=== PATIENT | female | born 1950 | race Caucasian/White ===

== ENCOUNTER 2018-06-06 14:23 | Outpatient (CLI) | payer MEDICARE, OTHER ==
--- NOTE | 2018-06-09 13:55 | Mammography Report ---
Reason: SCREENING MAMMO Procedure Date: 06/06/2018 Accession Number: [id number] / [id number] Procedure: MGN - Screening Mammo Dig Bilat CPT Code: FULL RESULT: EXAM: Screening Mammo Dig Bilat DATE: 06/06/2018 2:52 PM CLINICAL HISTORY: New baseline TECHNIQUE: Bilateral CC and MLO views were obtained. COMPARISON: None FINDINGS: The breast tissue is heterogeneously dense. No suspicious masses, clustered microcalcifications, or regions of architectural distortion are identified. IMPRESSION: Negative. RECOMMENDATION: Routine annual screening unless otherwise clinically indicated. BIRADS CATEGORY 1: Negative. STANDARD QUALIFYING STATEMENTS: 1. This examination was reviewed with the aid of Computer-Aided Detection (CAD). 2. A negative or benign imaging report should not delay biopsy if clinically suspicious findings are present. Consider surgical consultation if warrented. More than 5% of cancers are not identified by imaging. 3. Dense breasts may obscure an underlying neoplasm.
== END 2018-06-06 14:24 | disposition home or self-care (01) ==
LOC: DI.N 14:23
DX: Z12.31 Encounter for screening mammogram for malignant neoplasm of breast (principal)
CPT/HCPCS: 77067

== ENCOUNTER 2018-06-21 23:01 | Outpatient (CLI) | payer MEDICARE, OTHER | END 2018-06-21 23:02 | disposition critical access hospital (66) | LOC: EMS 23:01 | PROVIDERS: ATTEND Surgery | DX: S69.91XA Unspecified injury of right wrist, hand and finger(s), initial encounter (principal); W10.8XXA Fall (on) (from) other stairs and steps, initial encounter; Y93.41 Activity, dancing; Y92.008 Other place in unspecified non-institutional (private) residence as the place of occurrence of the external cause | CPT/HCPCS: A0425; A0427 ==

== ENCOUNTER 2018-06-21 23:32 | Emergency (ER) | payer MEDICARE, OTHER ==
--- NOTE | 2018-06-21 23:42 | ED Physician Documentation ---
PD HPI UPPER EXT INJURY - Stated complaint Stated Complaint: FALL/WRIST PAIN - Chief complaint Chief Complaint: Trauma Ext - History obtained from History obtained from: Patient, EMS - History of Present Illness Location: Right, Wrist Type of injury: Fall Where injury occurred: Other (friends house) Timing - onset: How many hours ago (2) Timing - duration: Hours (2) Timing - details: Abrupt onset Pain level max: 8 Pain level now: 4 Improved by: Rest, Ice, Immobilization Worsened by: Moving, Palpating Associated symptoms: Swelling (deformed R wrist). No: Weakness, Numbness, Tingling Contributing factors: No: Anticoagulated Recently seen: Not recently seen - Additonal information Additional information: pt is left handed Review of Systems Constitutional: denies: Fever, Chills GI: denies: Vomiting Skin: denies: Rash Musculoskeletal: denies: Neck pain, Back pain Neurologic: denies: Headache, Head injury PD PAST MEDICAL HISTORY - Present Medications Home Medications: Ambulatory Orders Medication Instructions Recorded Confirmed Multivitamin [Multiple Vitamins] 1 each PO DAILY 06/21/18 06/21/18 Hydrocodone/Acetaminophen 1 - 2 each PO Q6H PRN #14 tablet 06/22/18 [Hydrocodon-Acetaminophen 5-325] - Allergies Allergies/Adverse Reactions: Allergies Allergy/AdvReac Type Severity Reaction Status Date / Time erythromycin base Allergy Unknown Verified 06/21/18 23:50 PD ED PE NORMAL - Vitals Vital signs reviewed: Yes - General General: Alert and oriented X 3, No acute distress - HEENT HEENT: Moist mucous membranes - Derm Derm: Warm and dry - Extremities Extremities: Other (R wrist - deformity to the R wrist - NVI. ) - Neuro Neuro: Alert and oriented X 3 - Psych Psych: Normal mood, Normal affect Results - Vitals Vitals: Vital Signs - 24 hr 06/21/18 06/22/18 06/22/18 23:30 00:14 00:25 Temperature 36.8 C Heart Rate 85 84 82 Respiratory 16 18 16 Rate Blood Pressure 147/82 H 133/82 H 133/82 H O2 Saturation 98 100 99 06/22/18 06/22/18 00:31 00:57 Temperature Heart Rate 91 92 Respiratory 16 15 Rate Blood Pressure 132/82 H 132/82 H O2 Saturation 100 98 Oxygen O2 Source Room air - Rads (name of study) R wrist xray Radiology: Prelim report reviewed, EMP read contemporaneously, See rad report (Dorsally displaced and foreshortened comminuted distal radial fracture. Ulnar styloid fracture. ) post reduction Radiology: Prelim report reviewed, See rad report (Reduction of foreshortening and angulation. Approximately 1 cm dorsal displacement of the major distal radial fracture fragment. ) Procedures - Splint (location) R forearm Splint applied by: Physician, Tech Type of splint: Fiberglass, Sugar tong Other: Patient tolerated well, No complications, Neurovascular intact, Good alignment, Sling provided - Reduction Body part reduced: Right, Wrist Fracture or dislocation: Fracture Anesthesia: Hematoma block (marcaine and lidocaine) Reduction aftercare: NV intact, Xray confirms reduction, Alignment improved, Splint applied, Sling, Patient tolerated well PD MEDICAL DECISION MAKING - ED course Complexity details: reviewed results, re-evaluated patient, considered differential, d/w patient, d/w family ED course: Patient is a 68-year-old female, left-handed, who fell and suffered a distal right radius fracture as well as an ulnar styloid fracture. Hematoma block was used and the fracture was reduced. Patient tolerated well. Neurovascularly intact. Sugar tong splint applied. We will have her follow-up with orthopedics for further care. Patient counseled regarding signs and symptoms for which I believe and urgent re-evaluation would be necessary. Patient with good understanding of and agreement to plan and is comfortable going home at this time This document was made in part using voice recognition software. While efforts are made to proofread this document, sound alike and grammatical errors may occu r. Departure - Departure Disposition: 01 Home, Self Care Clinical Impression: Wrist fracture, right Qualifiers: Encounter type: initial encounter Fracture type: closed Qualified Code(s): S62.101A - Fracture of unspecified carpal bone, right wrist, initial encounter for closed fracture Condition: Good Instructions: ED Fx Wrist General Follow-Up: Shaina Burr PA [Primary Care Provider] - [facility] [Provider Group] - Within 1 week Prescriptions: Hydrocodone/Acetaminophen [Hydrocodon-Acetaminophen 5-325] 1 - 2 each PO Q6H PRN #14 tablet PRN Reason: pain Comments: Return if you worsen. Keep the splint in place. If your fingers are numb, return for further evaluation. The anesthetic use tonight will last for several hours. You need to follow-up with orthopedics for further evaluation and care. Do not drink alcohol or drive while on narcotic pain medicine. Note that many narcotic pain relievers also contain tylenol/acetaminophen. Please ensure that your total dose of acetaminophen from all sources does not exceed 3 grams (3000mg) per day. You may constipated on this medication, take a stool softener such as "Colace" twice a day while you are on it. Also recommend a ftvh-zcl-cozncjl laxative such as senna or MiraLAX any day that you do not have a bowel movement. If you received narcotic pain medication in the emergency department, do not drive or operate machinery for the next 24 hours.
[2018-06-22] MEDS ORDERED: BUPIVACAINE 0.5% PF 10 ML VIAL SUBQ STA (00:01)
[2018-06-22] MEDS ORDERED: LIDOCAINE 2% 10 ML MDV SUBQ STA (00:01)
--- NOTE | 2018-06-22 00:14 | XRAY Report ---
Reason: fall, R wrist pain Procedure Date: 06/22/2018 Accession Number: [id number] / [id number] Procedure: XR - Wrist 4 View RT CPT Code: FULL RESULT: EXAM: RIGHT WRIST RADIOGRAPHY EXAM DATE: 06/22/2018 12:02 AM. CLINICAL HISTORY: Fall, R wrist pain. COMPARISON: None. TECHNIQUE: 4 views. FINDINGS: Bones: There is a transverse fracture of the distal radius, with intra-articular extension. The fracture is dorsally displaced and foreshortened by approximately 1 cm. Ulnar styloid fracture. Joints: Osteoarthritis, worst in the first carpometacarpal joint. Soft Tissues: Soft tissue swelling. IMPRESSION: Dorsally displaced and foreshortened comminuted distal radial fracture. Ulnar styloid fracture. RADIA
[2018-06-22 00:35] VITALS: BP 132/82
--- NOTE | 2018-06-22 01:02 | XRAY Report ---
Reason: post reduction Procedure Date: 06/22/2018 Accession Number: [id number] / [id number] Procedure: XR - Wrist 2 View RT CPT Code: FULL RESULT: EXAM: RIGHT WRIST RADIOGRAPHY EXAM DATE: 06/22/2018 12:54 AM. CLINICAL HISTORY: Post reduction. COMPARISON: WRIST 4 VIEW RT 06/21/2018 11:41 PM. TECHNIQUE: 2 views. FINDINGS: Bones: Reduction of foreshortening and angulation. Approximately 1 cm dorsal displacement of the major distal radial fracture fragment. Joints: Stable osteoarthritic changes. Soft Tissues: Splint material obscures fine osseous detail. IMPRESSION: Reduction of foreshortening and angulation. Approximately 1 cm dorsal displacement of the major distal radial fracture fragment. RADIA
== END 2018-06-22 01:15 | disposition home or self-care (01) ==
LOC: EDUNIT# → ED 23:32
DX: S62.101A Fracture of unspecified carpal bone, right wrist, initial encounter for closed fracture (principal); W18.30XA Fall on same level, unspecified, initial encounter; Y93.41 Activity, dancing
CPT/HCPCS: 25605; 99283; 99284

== ENCOUNTER 2018-06-25 11:26 | Day surgery (SDC) | payer MEDICARE, OTHER ==
[~2018-06-25 11:26] MED LIST: ceFAZolin 2 GM/50 ML 2 GM/50 ML BAG IV ONE
[2018-06-25] MEDS ORDERED: LACTATED RINGERS 1,000 ML IV ONE ×2 (12:30→15:21)
--- NOTE | 2018-06-25 12:42 | ANESTHESIA ---
Pre-Anesthesia VS, & Labs - Diagnosis right wrist displaced commuted radius fracture - Procedure Right wrist ORIF distal radius Vital Signs: Temp Pulse Resp BP Pulse Ox 37.1 C 66 15 136/85 H 99 06/25/18 11:47 06/25/18 11:47 06/25/18 11:47 06/25/18 11:47 06/25/18 11:47 Height 5 ft 2.75 in Weight (kg) 57.2 kg Body Mass Index 21.9 - NPO >8 hours (apple juice at 9am only) - Is Patient ?: No Home Medications and Allergies Home Medications: Ambulatory Orders Biotin 2,500 mcg PO DAILY 06/25/18 Oziel Cit/Mag/D3/Zn/Shop Cooper/Bob/Bor [Citracal-Vit D + Magnesium Tab] 1 each PO DAILY 06/25/18 Melatonin/Pyridoxine [Melatonin 5 mg Tablet] 5 mg PO DAILY 06/25/18 Multivitamin [Multiple Vitamins] 1 each PO DAILY 06/21/18 Biotin 2,500 mcg PO DAILY 06/25/18 Oziel Cit/Mag/D3/Zn/Shop Cooper/Bob/Bor [Citracal-Vit D + Magnesium Tab] 1 each PO DAILY 06/25/18 Melatonin/Pyridoxine [Melatonin 5 mg Tablet] 5 mg PO DAILY 06/25/18 Allergies/Adverse Reactions: Allergies Allergy/AdvReac Type Severity Reaction Status Date / Time erythromycin base Allergy Unknown Verified 06/21/18 23:50 Anes History & Medical History - Anesthetic History Anesthesia Complications: reports: No previous complications - Medical History Cardiovascular: reports: None Pulmonary: reports: None Gastrointestinal: reports: None Urinary: reports: Kidney stones Endocrine/Autoimmune: reports: None Skin: reports: None Smoking Status: Never smoker - Surgical History Eyes Ears Nose Throat (EENT): Tonsil/Adenoidectomy Urologic: Ureterolithotomy (stones) Results - EKG Results EKG Comparison: Reviewed EKG (NSR) Exam General: Alert Dental: WNL Mouth Openin Fingerbreadth Mallampati classification: II Thyromental Distance: greater than 6 cm Respiratory: Lungs clear Cardiovascular: Regular rate Mental/Cognitive Status: Alert/Oriented X3 Plan Anesthesia Type: Supraclavicular Block Consent for Procedure(s) Verified and Reviewed: Yes Code Status: Do Not Attempt Resuscitation ASA classification: 2-Mild systemic disease Is this case an emergency?: No
[2018-06-25 14:02] LABS: BASOPHILS % (AUTO) 0.7 %; EOSINOPHILS % (AUTO) 0.7 %; HGB - HEMOGLOBIN 12.6 g/dL (12.0-16.0); LYMPHOCYTES # (AUTO) 1.3 10^3/uL (1.5-3.5); LYMPHOCYTES % (AUTO) 20.1 %; MEAN CORPUSCULAR HEMOGLOBIN 31.6 pg (27.0-31.0); MEAN CORPUSCULAR HGB CONC 34.8 g/dL (32.0-36.0); MEAN CORPUSCULAR VOLUME 90.7 fL (81.0-99.0); MEAN PLATELET VOLUME 9.3 fL (7.9-10.8); MONOCYTES # (AUTO) 0.8 10^3/uL (0.0-1.0); MONOCYTES % (AUTO) 11.7 %; NEUTROPHILS # (AUTO) 4.4 10^3/uL (1.5-6.6); NEUTROPHILS % (AUTO) 66.8 %; PLT - PLATELET COUNT 246 10^3/uL (130-450); RED CELL DISTRIBUTION WIDTH 13.1 % (12.0-15.0); WHITE BLOOD COUNT 6.5 x10^3/uL (4.8-10.8)
[2018-06-25 14:15] LABS: CALCIUM 8.7 mg/dL (8.5-10.3); CREATININE 0.7 mg/dL (0.4-1.0)
[2018-06-25] MEDS ORDERED: DEXAMETHASONE 4 MG/ML VIAL IVP ONE (15:00)
[2018-06-25] MEDS ORDERED: fentaNYL 100 MCG/2 ML VIAL IVP ONE (15:00)
[2018-06-25] MEDS ORDERED: MIDAZOLAM 2 MG/2 ML VIAL IVP ONE (15:00)
[2018-06-25] MEDS ORDERED: ONDANSETRON 4 MG/2 ML VIAL IVP ONE (15:00)
[2018-06-25] MEDS ORDERED: LIDOCAINE-MPF 2% 5 ML VIAL IM ONE (15:00)
[2018-06-25] MEDS ORDERED: PROPOFOL 200 MG/20 ML VIAL IVP ONE (15:00)
[2018-06-25] MEDS ORDERED: oxyCODONE 5 MG TABLET PO PRN (16:21)
[2018-06-25] MEDS ORDERED: ONDANSETRON 4 MG/2 ML VIAL IVP PRN (16:21)
--- NOTE | 2018-06-25 16:21 | IMMEDIATE POSTOPERATIVE NOTE ---
Immediate Postoperative Note - Procedure Note Procedure Date: 06/25/18 Pre-Op Diagnosis: right distal radius fracture Procedure: orif right distal radius, br tenotomy Post-Op Diagnosis: same Primary Surgeon: Eleonora Garland Machine Operator: jose rafael Anesthesia Type: General LMA, Regional block Complications: No complications Plan of Care: dc home when criteria met nwb RUE keep splint cdi followup 10-14 days or sooner if problems/questions/worsening of condition
[2018-06-25] MEDS: fentaNYL 100 MCG/2 ML VIAL ONE ×2 (16:23→16:30)
[2018-06-25] MEDS ORDERED: HYDROmorphone 0.5 MG/0.5 ML SYRINGE ONE (16:40)
[2018-06-25] MEDS ORDERED: oxyCODONE 5 MG TABLET ONE (17:11)
[2018-06-25 17:38] VITALS: BP 132/93
--- NOTE | 2018-06-26 19:46 | OPERATIVE REPORT ---
DATE OF SERVICE: 06/25/2018 Physician: Johnson Crews MD PREOPERATIVE DIAGNOSIS: Right distal radius fracture. POSTOPERATIVE DIAGNOSIS: Right distal radius fracture. PROCEDURES PERFORMED 1. Right distal radius open reduction internal fixation. 2. Four-view mini C-arm fluoroscopic interpretation. INTRAOPERATIVE COMPLICATIONS: None noted. SURGEON: Johnson Crews MD. ANESTHESIA: General LMA, as well as regional block. ESTIMATED BLOOD LOSS: Less than 25 mL. ORTHOPEDIC IMPLANTS: Biomet DVR right side narrow with associated locking and nonlocking 2.7 screws. COMPRESSION DEVICE: Bilateral calf SCD boots. PREOPERATIVE ANTIBIOTICS: Weight-based IV Ancef. ANESTHESIOLOGIST: Sasha Ellis CRNA, and Suresh Burgos CRNA. HISTORY OF PRESENT ILLNESS AND INDICATION: The patient is a 68-year-old female who injured her right distal radius in a fall. She was indicated for operative treatment. Please see preoperative evalua tion in the clinic and the risks, benefits, alternatives discussion. That was again highlighted in t he preoperative care unit. Patient verbalized thorough understanding of the above, verbalized her wi sh to proceed with operative treatment. Informed consent was given. PROCEDURE: On 06/25/2018, patient was identified in the preoperative care unit. She identifies her right wrist as the operative site; this is signed by the operating surgeon. She is given preoperativ e weight-based IV antibiotics. She is brought to the operating room, placed supine on the operating table. Of note, the patient had a preoperative supraclavicular block by the anesthesia team. Karenen t is placed supine on the operating table. Head, neck, and extremities are placed in anatomically co mfortable and safe positions. The patient ultimately is converted to general LMA anesthesia, as she is somewhat agitated and conversive and attempting to reach into the operative field. Patient's right upper extremity as a well. Padded tourniquet placed high on the right arm, taking ca re to avoid encumbrance of the axilla. Patient has the splint removed from the right upper extremity . Patient's right hand and wrist area, all the way up to the right tourniquet, is prescrubbed with c hlorhexidine solution and then prepped and draped in the usual sterile fashion. At this point, surgi sandor pause identifies the right wrist as the operative site. An Esmarch bandage was then used for exs anguination, followed by inflation of the tourniquet. Please see nursing report for final tourniquet time. Approximately 59 minutes at 250 mmHg. At this point, incision is made over the right wrist flexor carpi radialis, after the surgical pause identifies right wrist. Skin incision made, spreading dissection down to the sheath, which is then g ently incised, avoiding injury to the tendon itself. This is extended proximally and distally. The distal aspect of the incision is angled towards the wrist crease to avoid crossing it at a perpendicu lar. At this point, the posterior aspect of the FCR sheath is incised, and then the tendon is sunita t radially, and then retractors are brought medially and laterally to avoid iatrogenic injury to sonya cent neurovascular structures. At this point, spreading dissection is carried out down to the pronat or quadratus covering the radius. At this point, the corners of the radius are identified, and then an L-shaped incision is made, and the pronator quadratus is elevated off the distal radius. The frac ture site is identified, copiously irrigated. Hematoma and periosteum are removed from the fracture site, and then a reduction maneuver is performed to reduce the fracture maximally. This is then held with pressure using a 2-towel bump, and then the appropriate plate is sized and placed and held with a K-wire. It is adjusted proximally and distally to ensure that it has appropriate purchase, but al so is not too far distal to avoid any intraarticular hardware. At this point, once it is confirmed t o be appropriately positioned using fluoroscopic image, distal locking screws are placed, noted to be intraosseous but extraarticular, and then the oval hole is then used for additional reduction with a nonlocking screw, and then ultimately once fluoroscopic image in multiple planes confirms appropriat e fracture reduction and hardware position, then the remaining holes were filled with locking and non locking screws as appropriate. At this point, once the fracture is confirmed to be appropriately red uced with fluoroscopic image in multiple planes, and the hardware is noted to be acceptably positione d, the area is copiously irrigated. Pronator quadratus is closed over the plate as much as possible. At this point, again repeat copious irrigation is performed, and then the skin is closed in a layer ed fashion using 0 Vicryl, 2-0 Vicryl, and interrupted nylon suture. Skin is washed and dried. Xero form dressing is applied. Dry sterile dressing is applied. Soft roll is applied. Patient is placed in a clamshell plaster splint. Patient tolerated the procedure well. Instrument and sponge counts correct. Patient is transferred to the recovery room in stable condition. Patient will follow standard postoperative right distal radius open reduction and internal fixation p rotocol. It should be noted that, prior to the reduction maneuver, the brachioradialis is identified . The first dorsal extensor compartment is identified, and the brachioradialis was elevated off the radial styloid. Patient would be given prescriptions for perioperative antibiotics and perioperative analgesic medica tions. She will be nonweightbearing right upper extremity. She would be encouraged to move her digi ts. She would be in a sling and may elevate and ice the wrist as directed. She will followup in 10- 14 days or sooner on an as-needed basis. Her sister was contacted in the waiting room. Case is discussed with her. Fluoroscopic images are r eviewed. Her questions answered. Postoperative instructions reviewed. They would notify us prior t o followup visit if problems or questions arise. ADDITIONAL PROCEDURE: Four views of mini C-arm fluoroscopic image right wrist. FLUOROSCOPIC RADIOGRAPHIC INDICATIONS: Evaluate fracture reduction and hardware position right dista l radius fracture. RADIOGRAPHIC FINDINGS: Demonstrate a well-reduced distal radius fracture. This appears transverse. There is zoroastrian of radial height, radial inclination, and volar inclination. The metallic plat e volarly and screws are noted to be appropriately placed without any evidence of intraarticular hard rodriguez, and the screws are just to the second cortex, but not significantly over penetrating dorsally. RADIOGRAPHIC IMPRESSION: Right wrist as above. TD: 06/26/2018 18:42
== END 2018-06-25 11:27 | disposition home or self-care (01) ==
LOC: SDS 11:26
PROVIDERS: ATTEND Orthopaedic Surgery Sports Medicine
PROC: 0PSH04Z Reposition Right Radius with Internal Fixation Device, Open Approach (ICD-10-PCS; principal; 2018-06-25 12:30)
DX: S52.551A Other extraarticular fracture of lower end of right radius, initial encounter for closed fracture (principal); S52.611A Displaced fracture of right ulna styloid process, initial encounter for closed fracture
CPT/HCPCS: 25607; 36415; 80048; 85025; 93005; A9270; C1713; J0690; J1170; J7120

== ENCOUNTER 2021-10-06 18:12 | Outpatient (CLI) | payer MEDICARE, OTHER ==
[2021-10-06 21:10] LABS: BASOPHILS # (AUTO) 0.1 10^3/uL (0.0-0.1); BASOPHILS % (AUTO) 1.1 %; EOSINOPHILS # (AUTO) 0.1 10^3/uL (0.0-0.7); EOSINOPHILS % (AUTO) 1.3 %; HCT - HEMATOCRIT 43.3 % (37.0-47.0); HGB - HEMOGLOBIN 14.2 g/dL (12.0-16.0); LYMPHOCYTES # (AUTO) 1.6 10^3/uL (1.5-3.5); LYMPHOCYTES % (AUTO) 29.3 %; MEAN CORPUSCULAR HEMOGLOBIN 30.7 pg (27.0-31.0); MEAN CORPUSCULAR HGB CONC 32.8 g/dL (32.0-36.0); MEAN CORPUSCULAR VOLUME 93.5 fL (81.0-99.0); MEAN PLATELET VOLUME 10.8 fL (7.9-10.8); MONOCYTES # (AUTO) 0.6 10^3/uL (0.0-1.0); MONOCYTES % (AUTO) 10.8 %; NEUTROPHILS # (AUTO) 3.1 10^3/uL (1.5-6.6); NEUTROPHILS % (AUTO) 57.3 %; PLT - PLATELET COUNT 345 10^3/uL (130-450); RED BLOOD COUNT 4.63 10^6/uL (4.20-5.40); RED CELL DISTRIBUTION WIDTH 12.2 % (12.0-15.0); WHITE BLOOD COUNT 5.4 x10^3/uL (4.8-10.8)
[2021-10-06 21:31] LABS: THYROID STIMULATING HORMONE 2.74 uIU/mL (0.34-5.60)
[2021-10-06 21:35] LABS: ALBUMIN 4.1 g/dL (3.2-5.5); ALBUMIN/GLOBULIN RATIO 1.1 (1.0-2.2); ALKALINE PHOSPHATASE 80 IU/L (42-121); ALT ALANINE AMINOTRANSFERASE 35 IU/L (10-60); AST ASPARTATE AMINOTRANSFERASE 41 IU/L (10-42); BILIRUBIN,TOTAL 0.9 mg/dL (0.2-1.0); BUN - BLOOD UREA NITROGEN 27 mg/dL (6-20); CALCIUM 8.9 mg/dL (8.5-10.3); CARBON DIOXIDE - CO2 26 mmol/L (21-32); CHLORIDE 102 mmol/L (101-111); CHOL/HDL RATIO 2.2 (<4.4); CHOLESTEROL 222 mg/dL; CREATININE 0.8 mg/dL (0.4-1.0); GFR - MDRD 71 (>89); GLUCOSE 86 mg/dL (70-100); HDL CHOLESTEROL 101 mg/dL; LDL CHOLESTEROL,CALCULATED 110 mg/dL; LDL/HDL RATIO 1.1 (<4.4); POTASSIUM 3.7 mmol/L (3.5-5.0); SODIUM 138 mmol/L (135-145); TOTAL PROTEIN 7.7 g/dL (6.7-8.2); TRIGLYCERIDES 57 mg/dL; VLDL CHOLESTEROL 11 mg/dL
[2021-10-06 21:44] LABS: ESTIMATED AVERAGE GLUCOSE 108 mg/dL (70-100); HEMOGLOBIN A1c% 5.4 % (4.27-6.07)
[2021-10-06 22:14] LABS: BILIRUBIN,URINE NEGATIVE (NEGATIVE); GLUCOSE, URINE (UA) NEGATIVE (NEGATIVE); KETONES,URINE (UA) NEGATIVE (NEGATIVE); LEUKOCYTE ESTERASE, URINE SMALL (NEGATIVE); NITRITE,URINE POSITIVE (NEGATIVE); OCCULT BLOOD,URINE LARGE (NEGATIVE); PROTEIN,URINE 30 mg/dL (NEGATIVE); UROBILINOGEN,URINE 0.2 (NORMAL) E.U./dL (NORMAL)
[2021-10-06 22:16] LABS: CLARITY,URINE CLOUDY (CLEAR)
[2021-10-06 22:44] LABS: WBC,URINE >25 /HPF (0-5)
[2021-10-06 22:45] LABS: AMORPHOUS SEDIMENT,UR Moderate /LPF; BACTERIA,URINE Many /HPF (None Seen); RBC,URINE TNTC /HPF (0-5); SQUAMOUS EPITHELIAL CELL,UR RARE Squamous (<= Few); WBC CLUMPS,URINE PRESENT
== END 2021-10-06 18:13 | disposition home or self-care (01) ==
LOC: LAB.N 18:12
PROVIDERS: ATTEND Nurse Practitioner
DX: E78.5 Hyperlipidemia, unspecified (principal); R53.83 Other fatigue; Z13.1 Encounter for screening for diabetes mellitus
CPT/HCPCS: 36415; 80053; 80061; 81001; 83036; 83721; 84443; 85025; 87086; 87181

== ENCOUNTER 2021-10-25 15:22 | Outpatient (CLI) | payer MEDICARE, OTHER ==
--- NOTE | 2021-10-26 07:53 | DEXA Report ---
PROCEDURE: Dexa Spine and/or Hip INDICATIONS: OSTEOPOROSIS TECHNIQUE: Dual energy x-ray absorptiometry (DXA) was performed on a [employer] System. Regions measur ed are the AP Spine, femoral neck, and if needed forearm. COMPARISON: None. FINDINGS: Lumbar Spine: Bone Mineral Density 0.814 g/cm/cm,T score -3.1. Left Hip: Bone Mineral Density 0.654 g/cm/cm,T score -2.8. Left Femoral Neck: Bone Mineral Density 0.645 g/cm/cm, T score -2.8. (T score greater or equal to -1.0: NORMAL) (T score from -1.1 to -2.4: OSTEOPENIA) (T score less than or equal to -2.5 to: OSTEOPOROSIS) Impression: Based on WHO criteria, the patient is osteoporotic. Patients with diagnosis of osteoporosis or osteopenia should have regular bone mineral density assess ment. For those eligible for Medicare, routine testing is allowed once every 2 years. Testing frequ ency can be increased for patients who have rapidly progressing disease or for those who are receivin g medical therapy to restore bone mass. Reviewed by: Keily Basurto MD on 10/26/2021 7:52 AM PST Approved by: Keily Basurto MD on 10/26/2021 7:52 AM PST Station ID: [id number]
== END 2021-10-25 15:23 | disposition home or self-care (01) ==
LOC: DI 15:22
PROVIDERS: ATTEND Nurse Practitioner
DX: M81.0 Age-related osteoporosis without current pathological fracture (principal)

== ENCOUNTER 2021-11-15 19:03 | Outpatient (CLI) | payer MEDICARE, OTHER ==
--- NOTE | 2021-11-16 09:57 | XRAY Report ---
PROCEDURE: Hip w/Pelvis 1V RT INDICATIONS: R HIP PX TECHNIQUE: AP pelvis with lateral view(s) of the right hip(s). COMPARISON: None. FINDINGS: Bones: No fractures or dislocations. Pelvic ring appears intact. No suspicious bony lesions. Ther e is moderate degenerative hip joint space narrowing. Minimal periarticular osteophytes are present. No erosions. Degenerative changes are present within the lower lumbar spine. Soft tissues: The visualized bowel gas pattern is normal. No suspicious soft tissue calcifications. IMPRESSION: Moderate bilateral hip arthritis as above. Reviewed by: Amy Quan MD on 11/16/2021 9:55 AM PDT Approved by: Amy Quan MD on 11/16/2021 9:55 AM PDT Station ID: [id number]
== END 2021-11-15 23:59 | disposition home or self-care (01) ==
LOC: DI.N 19:03
PROVIDERS: ATTEND Nurse Practitioner
DX: M16.0 Bilateral primary osteoarthritis of hip (principal)

== ENCOUNTER 2021-11-20 16:01 | Outpatient (CLI) | payer MEDICARE, OTHER ==
--- NOTE | 2021-11-22 09:03 | Mammography Report ---
BILATERAL DIGITAL SCREENING MAMMOGRAM 3D/2D: 11/20/2021 CLINICAL: Routine screening. Comparison is made to exam dated: 06/06/2018 mammogram - [facility]. The tissue o f both breasts is heterogeneously dense. This may lower the sensitivity of mammography. There is a benign calcification in the right breast. No significant masses, calcifications, or other findings are seen in either breast. There has been no significant interval change. IMPRESSION: BENIGN There is no mammographic evidence of malignancy. A 1 year screening mammogram is recommended. This exam was interpreted at Station ID: [id number]. NOTE: For mammograms, a report in lay terms will be sent to the patient. Approximately 15% of breast malignancies will not be visualized mammographically. In the management of a palpable breast mass, a negative mammogram must not discourage biopsy of a clinically suspicious lesion. Electronically Signed By: Sanjeev Aguila M.D. slc/penrad:11/21/2021 09:58:11 ACR BI-RADS Category 2: Benign Finding(s) 3342F PARENCHYMAL PATTERN: (D) - The breast(s) demonstrate(s) heterogeneously dense fibroglandular rian spaulding. BI-RADS CATEGORY: (2) - 2 RECOMMENDATION: (ANNUAL) - Recommend routine annual screening mammography. [id number] 1 year screening LATERALITY: (B)
== END 2021-11-20 16:02 | disposition home or self-care (01) ==
LOC: DI.N 16:01
PROVIDERS: ATTEND Nurse Practitioner
DX: Z12.31 Encounter for screening mammogram for malignant neoplasm of breast (principal)

== ENCOUNTER 2023-01-22 15:28 | Outpatient (CLI) | payer MEDICARE, OTHER ==
[2023-01-22 17:55] LABS: BASOPHILS # (AUTO) 0.1 10^3/uL (0.0-0.1); BASOPHILS % (AUTO) 0.9 %; EOSINOPHILS # (AUTO) 0.1 10^3/uL (0.0-0.7); EOSINOPHILS % (AUTO) 1.9 %; LYMPHOCYTES # (AUTO) 1.7 10^3/uL (1.5-3.5); LYMPHOCYTES % (AUTO) 28.5 %; MEAN CORPUSCULAR HEMOGLOBIN 30.4 pg (27.0-31.0); MEAN CORPUSCULAR HGB CONC 32.5 g/dL (32.0-36.0); MEAN CORPUSCULAR VOLUME 93.7 fL (81.0-99.0); MEAN PLATELET VOLUME 10.8 fL (7.9-10.8); MONOCYTES # (AUTO) 0.7 10^3/uL (0.0-1.0); MONOCYTES % (AUTO) 11.4 %; NEUTROPHILS # (AUTO) 3.3 10^3/uL (1.5-6.6); NEUTROPHILS % (AUTO) 57.1 %; PLT - PLATELET COUNT 301 10^3/uL (130-450); RED BLOOD COUNT 4.27 10^6/uL (4.20-5.40); RED CELL DISTRIBUTION WIDTH 13.1 % (12.0-15.0); WHITE BLOOD COUNT 5.8 x10^3/uL (4.8-10.8)
[2023-01-22 18:20] LABS: THYROID STIMULATING HORMONE 2.8 uIU/mL (0.34-5.60)
[2023-01-22 18:23] LABS: ALBUMIN 4.1 g/dL (3.2-5.5); ALBUMIN/GLOBULIN RATIO 1.1 (1.0-2.2); ALKALINE PHOSPHATASE 52 IU/L (42-121); ALT ALANINE AMINOTRANSFERASE 20 IU/L (10-60); AST ASPARTATE AMINOTRANSFERASE 25 IU/L (10-42); BILIRUBIN,TOTAL 0.5 mg/dL (0.2-1.0); BUN - BLOOD UREA NITROGEN 29 mg/dL (6-20); CARBON DIOXIDE - CO2 25 mmol/L (21-32); CHLORIDE 111 mmol/L (101-111); CHOL/HDL RATIO 2.5 (<4.4); CHOLESTEROL 224 mg/dL; CREATININE 0.9 mg/dL (0.4-1.0); GFR - MDRD 62 (>89); GLUCOSE 98 mg/dL (70-100); HDL CHOLESTEROL 91 mg/dL; POTASSIUM 3.8 mmol/L (3.5-5.0); SODIUM 143 mmol/L (135-145); TOTAL PROTEIN 7.7 g/dL (6.7-8.2); TRIGLYCERIDES 39 mg/dL
== END 2023-01-22 15:29 | disposition home or self-care (01) ==
LOC: LAB.N 15:28
PROVIDERS: ATTEND Nurse Practitioner
DX: E78.5 Hyperlipidemia, unspecified (principal); Z79.899 Other long term (current) drug therapy; Z13.29 Encounter for screening for other suspected endocrine disorder
CPT/HCPCS: 36415; 80053; 80061; 83721; 84443; 85025